=== PATIENT | male | born 1960 | race African-American/Black ===

== ENCOUNTER 2018-01-20 17:19 | Emergency (ER) | payer MEDICAID, OTHER ==
[~2018-01-20] VITALS: Ht 167.6 cm; Wt 73.0 kg
[~2018-01-20 17:19] MED LIST: ASPI-1158; HYDR25TA; NIFE60TA83; POTA10TA2; SIMV20TA6; [UNRECOGNIZED DRUG - REMARK]
[2018-01-20] MEDS ORDERED: ACETAMINOPHEN 325MG TABLET PO ONE (18:30)
[2018-01-20] MEDS ORDERED: NAPROXEN 500MG TABLET PO ONE (18:30)
[2018-01-20 19:54] VITALS: BP 137/91
== END 2018-01-20 19:59 | disposition home or self-care (01) ==
LOC: ER 17:46
DX: S16.1XXA Strain of muscle, fascia and tendon at neck level, initial encounter (principal); I10 Essential (primary) hypertension; Z79.82 Long term (current) use of aspirin; V43.52XA Car driver injured in collision with other type car in traffic accident, initial encounter; Y93.89 Activity, other specified; Y92.488 Other paved roadways as the place of occurrence of the external cause
CPT/HCPCS: 72125; 99284

== ENCOUNTER 2018-02-22 17:07 | Emergency (ER) | payer MEDICAID ==
[~2018-02-22] VITALS: Ht 167.6 cm; Wt 73.0 kg
[~2018-02-22 17:07] MED LIST changes: +ACETAMINOPHEN 325MG TABLET ONE
[2018-02-22] MEDS ORDERED: ACETAMINOPHEN 325MG TABLET PO ONE (18:30)
[2018-02-22 19:46] VITALS: BP 121/86
[2018-02-22] MEDS ORDERED: PENICILLIN G BENZATHINE 1,200,000 UNITS/2ML SYR IM ONE (21:00)
== END 2018-02-22 21:10 | disposition home or self-care (01) ==
LOC: ER 17:55
DX: J02.9 Acute pharyngitis, unspecified (principal); I10 Essential (primary) hypertension; F17.200 Nicotine dependence, unspecified, uncomplicated; Z79.82 Long term (current) use of aspirin
CPT/HCPCS: 87430; 87804; 99284; J0561

== ENCOUNTER 2020-09-06 14:53 | Emergency (ER) | payer MEDICAID ==
[~2020-09-06] VITALS: Ht 167.6 cm; Wt 72.0 kg
[~2020-09-06 14:53] MED LIST changes: -ACETAMINOPHEN 325MG TABLET ONE; +NIFE60TA82; -NIFE60TA83; +SIMV-43; -SIMV20TA6
[2020-09-06] MEDS ORDERED: KETOROLAC 60MG/2ML VIAL IM ONE (16:00)
[2020-09-06 16:59] VITALS: BP 156/96
== END 2020-09-06 18:17 | disposition home or self-care (01) ==
LOC: ER 14:53
DX: J02.9 Acute pharyngitis, unspecified (principal); I10 Essential (primary) hypertension
CPT/HCPCS: 87430; 96372; 99283; J1885